=== PATIENT | male | born 1965 | race Caucasian/White ===

== ENCOUNTER → 2020-06-19 | Outpatient (CLI) | payer MEDICARE, OTHER | LOC: WCC 11:00 | DX: L89.113 Pressure ulcer of right upper back, stage 3 (principal); L89.893 Pressure ulcer of other site, stage 3; L89.309 Pressure ulcer of unspecified buttock, unspecified stage; M62.3 Immobility syndrome (paraplegic); M19.90 Unspecified osteoarthritis, unspecified site; H40.9 Unspecified glaucoma; B96.4 Proteus (mirabilis) (morganii) as the cause of diseases classified elsewhere; Z87.828 Personal history of other (healed) physical injury and trauma; Z74.1 Need for assistance with personal care; Z88.0 Allergy status to penicillin ==

== ENCOUNTER → 2020-07-03 | Outpatient (CLI) | payer MEDICARE, OTHER | LOC: WCC 11:00 | PROC: 0JB70ZZ Excision of Back Subcutaneous Tissue and Fascia, Open Approach (ICD-10-PCS; principal; 2020-07-03) | PROC: 0JBB0ZZ Excision of Perineum Subcutaneous Tissue and Fascia, Open Approach (ICD-10-PCS; 2020-07-03) | DX: L89.893 Pressure ulcer of other site, stage 3 (principal); L89.113 Pressure ulcer of right upper back, stage 3; M62.3 Immobility syndrome (paraplegic); B96.4 Proteus (mirabilis) (morganii) as the cause of diseases classified elsewhere; Z74.1 Need for assistance with personal care; Z88.0 Allergy status to penicillin; Z79.899 Other long term (current) drug therapy ==

== ENCOUNTER → 2020-07-24 | Outpatient (CLI) | payer MEDICARE, OTHER | LOC: WCC 11:00 | PROC: 0KBM0ZZ Excision of Perineum Muscle, Open Approach (ICD-10-PCS; principal; 2020-07-24) | PROC: 0KBF0ZZ Excision of Right Trunk Muscle, Open Approach (ICD-10-PCS; 2020-07-24) | DX: L89.893 Pressure ulcer of other site, stage 3 (principal); L89.113 Pressure ulcer of right upper back, stage 3; M62.3 Immobility syndrome (paraplegic); B96.4 Proteus (mirabilis) (morganii) as the cause of diseases classified elsewhere; Z74.1 Need for assistance with personal care; Z88.0 Allergy status to penicillin; Z79.899 Other long term (current) drug therapy ==

== ENCOUNTER → 2020-08-14 | Outpatient (CLI) | payer MEDICARE, OTHER | LOC: WCC 11:00 | DX: L89.893 Pressure ulcer of other site, stage 3 (principal); L89.113 Pressure ulcer of right upper back, stage 3; B96.4 Proteus (mirabilis) (morganii) as the cause of diseases classified elsewhere; M62.3 Immobility syndrome (paraplegic); H40.9 Unspecified glaucoma; M19.90 Unspecified osteoarthritis, unspecified site; Z88.0 Allergy status to penicillin ==

== ENCOUNTER → 2020-08-28 | Outpatient (CLI) | payer MEDICARE, OTHER | LOC: WCC 11:00 | DX: L89.113 Pressure ulcer of right upper back, stage 3 (principal); L89.893 Pressure ulcer of other site, stage 3; B96.4 Proteus (mirabilis) (morganii) as the cause of diseases classified elsewhere; M62.3 Immobility syndrome (paraplegic); Z74.1 Need for assistance with personal care; Z88.0 Allergy status to penicillin; Z79.2 Long term (current) use of antibiotics; Z79.899 Other long term (current) drug therapy | CPT/HCPCS: 87070; 87077; 87186; 87205 ==

== ENCOUNTER → 2020-09-12 | Outpatient (CLI) | payer MEDICARE, OTHER | LOC: WCC 11:00 | PROC: 0KBM0ZZ Excision of Perineum Muscle, Open Approach (ICD-10-PCS; principal; 2020-09-12) | PROC: 0KBF0ZZ Excision of Right Trunk Muscle, Open Approach (ICD-10-PCS; 2020-09-12) | DX: I96 Gangrene, not elsewhere classified (principal); L89.893 Pressure ulcer of other site, stage 3; L89.113 Pressure ulcer of right upper back, stage 3; M62.3 Immobility syndrome (paraplegic); B96.29 Other Escherichia coli [E. coli] as the cause of diseases classified elsewhere; M19.90 Unspecified osteoarthritis, unspecified site; Z79.2 Long term (current) use of antibiotics; Z79.891 Long term (current) use of opiate analgesic; Z79.1 Long term (current) use of non-steroidal anti-inflammatories (NSAID); Z79.899 Other long term (current) drug therapy; Z74.1 Need for assistance with personal care; Z88.0 Allergy status to penicillin ==

== ENCOUNTER → 2020-09-26 | Outpatient (CLI) | payer MEDICARE, OTHER | LOC: WCC 11:00 | DX: L89.113 Pressure ulcer of right upper back, stage 3 (principal); L89.893 Pressure ulcer of other site, stage 3; M62.3 Immobility syndrome (paraplegic); B96.29 Other Escherichia coli [E. coli] as the cause of diseases classified elsewhere; Z74.1 Need for assistance with personal care; Z88.0 Allergy status to penicillin; Z79.2 Long term (current) use of antibiotics; Z79.899 Other long term (current) drug therapy ==

== ENCOUNTER → 2020-10-11 | Outpatient (CLI) | payer MEDICARE, OTHER | LOC: WCC 10:55 | PROC: 0JBB0ZZ Excision of Perineum Subcutaneous Tissue and Fascia, Open Approach (ICD-10-PCS; principal; 2020-10-11) | PROC: 0JB70ZZ Excision of Back Subcutaneous Tissue and Fascia, Open Approach (ICD-10-PCS; 2020-10-11) | DX: I96 Gangrene, not elsewhere classified (principal); L89.113 Pressure ulcer of right upper back, stage 3; L89.893 Pressure ulcer of other site, stage 3; Z79.891 Long term (current) use of opiate analgesic; Z79.899 Other long term (current) drug therapy ==

== ENCOUNTER → 2020-10-25 | Outpatient (CLI) | payer MEDICARE, OTHER | LOC: WCC 11:00 | DX: L89.113 Pressure ulcer of right upper back, stage 3 (principal); L89.893 Pressure ulcer of other site, stage 3; M62.3 Immobility syndrome (paraplegic); B96.29 Other Escherichia coli [E. coli] as the cause of diseases classified elsewhere; Z74.1 Need for assistance with personal care; Z88.0 Allergy status to penicillin; Z79.891 Long term (current) use of opiate analgesic; Z79.899 Other long term (current) drug therapy ==

== ENCOUNTER → 2020-11-08 | Outpatient (CLI) | payer MEDICARE, OTHER | LOC: WCC 11:00 | DX: L89.113 Pressure ulcer of right upper back, stage 3 (principal); L89.893 Pressure ulcer of other site, stage 3; M62.3 Immobility syndrome (paraplegic); B96.29 Other Escherichia coli [E. coli] as the cause of diseases classified elsewhere; Z74.1 Need for assistance with personal care; Z88.0 Allergy status to penicillin; Z79.891 Long term (current) use of opiate analgesic; Z79.899 Other long term (current) drug therapy ==

== ENCOUNTER → 2020-11-22 | Outpatient (CLI) | payer MEDICARE, OTHER | LOC: WCC 11:00 | DX: L89.113 Pressure ulcer of right upper back, stage 3 (principal); L89.893 Pressure ulcer of other site, stage 3; M62.3 Immobility syndrome (paraplegic); B96.29 Other Escherichia coli [E. coli] as the cause of diseases classified elsewhere; Z74.1 Need for assistance with personal care; Z88.0 Allergy status to penicillin; Z79.891 Long term (current) use of opiate analgesic; Z79.899 Other long term (current) drug therapy ==

== ENCOUNTER → 2020-12-06 | Outpatient (CLI) | payer MEDICARE, OTHER | LOC: WCC 11:00 | DX: L89.113 Pressure ulcer of right upper back, stage 3 (principal); L89.893 Pressure ulcer of other site, stage 3; B96.29 Other Escherichia coli [E. coli] as the cause of diseases classified elsewhere; M62.3 Immobility syndrome (paraplegic); Z79.899 Other long term (current) drug therapy; Z99.3 Dependence on wheelchair; Z74.1 Need for assistance with personal care ==

== ENCOUNTER → 2020-12-25 | Outpatient (CLI) | payer MEDICARE, OTHER | LOC: WCC 11:00 | DX: L89.113 Pressure ulcer of right upper back, stage 3 (principal); L89.893 Pressure ulcer of other site, stage 3; M62.3 Immobility syndrome (paraplegic); E44.0 Moderate protein-calorie malnutrition; B96.29 Other Escherichia coli [E. coli] as the cause of diseases classified elsewhere; Z74.1 Need for assistance with personal care; Z88.0 Allergy status to penicillin; Z79.891 Long term (current) use of opiate analgesic; Z79.899 Other long term (current) drug therapy ==

== ENCOUNTER → 2021-01-10 | Outpatient (CLI) | payer MEDICARE, OTHER | LOC: WCC 09:22 | DX: L89.893 Pressure ulcer of other site, stage 3 (principal); L89.113 Pressure ulcer of right upper back, stage 3; G82.20 Paraplegia, unspecified; M62.3 Immobility syndrome (paraplegic); Z74.1 Need for assistance with personal care; B96.29 Other Escherichia coli [E. coli] as the cause of diseases classified elsewhere; E44.0 Moderate protein-calorie malnutrition; Z88.0 Allergy status to penicillin | CPT/HCPCS: 87070; 87205 ==

== ENCOUNTER → 2021-01-31 | Outpatient (CLI) | payer MEDICARE, OTHER | LOC: WCC 11:00 | DX: L89.113 Pressure ulcer of right upper back, stage 3 (principal); L89.893 Pressure ulcer of other site, stage 3; G82.20 Paraplegia, unspecified; Z74.1 Need for assistance with personal care; B96.29 Other Escherichia coli [E. coli] as the cause of diseases classified elsewhere; E44.0 Moderate protein-calorie malnutrition ==

== ENCOUNTER → 2021-02-21 | Outpatient (CLI) | payer MEDICARE, OTHER | LOC: WCC 11:00 | DX: L89.113 Pressure ulcer of right upper back, stage 3 (principal); L89.893 Pressure ulcer of other site, stage 3; E44.0 Moderate protein-calorie malnutrition; M62.3 Immobility syndrome (paraplegic); B96.29 Other Escherichia coli [E. coli] as the cause of diseases classified elsewhere; Z74.1 Need for assistance with personal care; Z88.0 Allergy status to penicillin; Z79.899 Other long term (current) drug therapy ==

== ENCOUNTER → 2021-03-20 | Outpatient (CLI) | payer MEDICARE, OTHER | LOC: WCC 08:56 | DX: L89.893 Pressure ulcer of other site, stage 3 (principal); L89.113 Pressure ulcer of right upper back, stage 3; M62.3 Immobility syndrome (paraplegic); Z74.1 Need for assistance with personal care; B96.29 Other Escherichia coli [E. coli] as the cause of diseases classified elsewhere; E44.0 Moderate protein-calorie malnutrition; Z88.0 Allergy status to penicillin; L89.309 Pressure ulcer of unspecified buttock, unspecified stage ==

== ENCOUNTER → 2021-04-11 | Outpatient (CLI) | payer MEDICARE, OTHER | END | disposition home or self-care (01) | LOC: WCC 08:06 | PROC: 0JB70ZZ Excision of Back Subcutaneous Tissue and Fascia, Open Approach (ICD-10-PCS; principal; 2021-04-11) | PROC: 0WBM0ZZ Excision of Male Perineum, Open Approach (ICD-10-PCS; 2021-04-11) | DX: L89.113 Pressure ulcer of right upper back, stage 3 (principal); L89.893 Pressure ulcer of other site, stage 3; M62.3 Immobility syndrome (paraplegic); B96.29 Other Escherichia coli [E. coli] as the cause of diseases classified elsewhere; M19.90 Unspecified osteoarthritis, unspecified site; H40.9 Unspecified glaucoma; E44.0 Moderate protein-calorie malnutrition; Z68.23 Body mass index [BMI] 23.0-23.9, adult; Z79.891 Long term (current) use of opiate analgesic; Z79.1 Long term (current) use of non-steroidal anti-inflammatories (NSAID); Z79.899 Other long term (current) drug therapy; Z88.0 Allergy status to penicillin ==

== ENCOUNTER → 2021-04-25 | Outpatient (CLI) | payer MEDICARE, OTHER | END | disposition home or self-care (01) | LOC: WCC 08:03 | PROC: 0JB70ZZ Excision of Back Subcutaneous Tissue and Fascia, Open Approach (ICD-10-PCS; principal; 2021-04-25) | PROC: 0JBB0ZZ Excision of Perineum Subcutaneous Tissue and Fascia, Open Approach (ICD-10-PCS; 2021-04-25) | DX: L89.113 Pressure ulcer of right upper back, stage 3 (principal); L89.893 Pressure ulcer of other site, stage 3; B96.29 Other Escherichia coli [E. coli] as the cause of diseases classified elsewhere; H40.9 Unspecified glaucoma; M19.90 Unspecified osteoarthritis, unspecified site; G82.20 Paraplegia, unspecified; E44.0 Moderate protein-calorie malnutrition; Z68.23 Body mass index [BMI] 23.0-23.9, adult; Z74.1 Need for assistance with personal care; Z79.891 Long term (current) use of opiate analgesic; Z79.1 Long term (current) use of non-steroidal anti-inflammatories (NSAID); Z79.899 Other long term (current) drug therapy; Z88.0 Allergy status to penicillin ==

== ENCOUNTER → 2021-05-14 | Outpatient (CLI) | payer MEDICARE, OTHER | LOC: WCC 08:02 | DX: L89.113 Pressure ulcer of right upper back, stage 3 (principal); L89.893 Pressure ulcer of other site, stage 3; M62.3 Immobility syndrome (paraplegic); Z74.1 Need for assistance with personal care; B96.29 Other Escherichia coli [E. coli] as the cause of diseases classified elsewhere; E44.0 Moderate protein-calorie malnutrition; Z88.0 Allergy status to penicillin; Z79.899 Other long term (current) drug therapy | CPT/HCPCS: 87070; 87205 ==

== ENCOUNTER → 2021-05-28 | Outpatient (CLI) | payer MEDICARE, OTHER | LOC: WCC 07:42 | DX: L89.113 Pressure ulcer of right upper back, stage 3 (principal); L89.893 Pressure ulcer of other site, stage 3; M62.3 Immobility syndrome (paraplegic); Z74.1 Need for assistance with personal care; B96.29 Other Escherichia coli [E. coli] as the cause of diseases classified elsewhere; E44.0 Moderate protein-calorie malnutrition; Z88.0 Allergy status to penicillin ==

== ENCOUNTER → 2021-06-18 | Outpatient (CLI) | payer MEDICARE, OTHER | LOC: WCC 08:25 | DX: L89.893 Pressure ulcer of other site, stage 3 (principal); L89.113 Pressure ulcer of right upper back, stage 3; M62.3 Immobility syndrome (paraplegic); Z74.1 Need for assistance with personal care; E44.0 Moderate protein-calorie malnutrition; B96.29 Other Escherichia coli [E. coli] as the cause of diseases classified elsewhere; Z88.0 Allergy status to penicillin; Z68.23 Body mass index [BMI] 23.0-23.9, adult ==

== ENCOUNTER → 2021-08-01 | Outpatient (CLI) | payer MEDICARE, OTHER | LOC: WCC 07:20 | DX: L89.893 Pressure ulcer of other site, stage 3 (principal); L89.113 Pressure ulcer of right upper back, stage 3; B96.29 Other Escherichia coli [E. coli] as the cause of diseases classified elsewhere; E44.0 Moderate protein-calorie malnutrition; M62.3 Immobility syndrome (paraplegic); Z74.1 Need for assistance with personal care; Z68.23 Body mass index [BMI] 23.0-23.9, adult; Z88.0 Allergy status to penicillin ==

== ENCOUNTER → 2021-08-26 | Outpatient (CLI) | payer MEDICARE, OTHER | END | disposition home or self-care (01) | LOC: WCC 07:43 | PROC: 0JB70ZZ Excision of Back Subcutaneous Tissue and Fascia, Open Approach (ICD-10-PCS; principal; 2021-08-26) | PROC: 0JBB0ZZ Excision of Perineum Subcutaneous Tissue and Fascia, Open Approach (ICD-10-PCS; 2021-08-26) | DX: L89.113 Pressure ulcer of right upper back, stage 3 (principal); L89.893 Pressure ulcer of other site, stage 3; M62.3 Immobility syndrome (paraplegic); H40.9 Unspecified glaucoma; M19.90 Unspecified osteoarthritis, unspecified site; E44.0 Moderate protein-calorie malnutrition; Z68.23 Body mass index [BMI] 23.0-23.9, adult; Z79.899 Other long term (current) drug therapy; Z88.0 Allergy status to penicillin ==

== ENCOUNTER → 2021-09-16 | Outpatient (CLI) | payer MEDICARE, OTHER | LOC: WCC 08:04 | DX: L89.893 Pressure ulcer of other site, stage 3 (principal); L89.113 Pressure ulcer of right upper back, stage 3; E44.0 Moderate protein-calorie malnutrition; M62.3 Immobility syndrome (paraplegic); Z74.1 Need for assistance with personal care; Z68.23 Body mass index [BMI] 23.0-23.9, adult; Z88.0 Allergy status to penicillin ==

== ENCOUNTER → 2021-10-10 | Outpatient (CLI) | payer MEDICARE, OTHER | END | disposition home or self-care (01) | LOC: WCC 07:54 | DX: L89.893 Pressure ulcer of other site, stage 3 (principal); L89.113 Pressure ulcer of right upper back, stage 3; M62.3 Immobility syndrome (paraplegic); E44.0 Moderate protein-calorie malnutrition; Z74.1 Need for assistance with personal care; Z79.899 Other long term (current) drug therapy ==

== ENCOUNTER → 2021-11-04 | Outpatient (CLI) | payer MEDICARE, OTHER | LOC: WCC 07:48 | DX: L89.113 Pressure ulcer of right upper back, stage 3 (principal); L89.893 Pressure ulcer of other site, stage 3; M62.3 Immobility syndrome (paraplegic); E44.0 Moderate protein-calorie malnutrition; Z74.1 Need for assistance with personal care; Z88.0 Allergy status to penicillin; Z79.899 Other long term (current) drug therapy ==

== ENCOUNTER → 2021-12-02 | Outpatient (CLI) | payer MEDICARE, OTHER | LOC: WCC 07:56 | DX: L89.113 Pressure ulcer of right upper back, stage 3 (principal); L89.893 Pressure ulcer of other site, stage 3; M62.3 Immobility syndrome (paraplegic); E44.0 Moderate protein-calorie malnutrition; Z74.1 Need for assistance with personal care; Z88.0 Allergy status to penicillin ==

== ENCOUNTER → 2021-12-24 | Outpatient (CLI) | payer MEDICARE, OTHER | END | disposition home or self-care (01) | LOC: WCC 07:32 | DX: L89.113 Pressure ulcer of right upper back, stage 3 (principal); L89.893 Pressure ulcer of other site, stage 3; E44.0 Moderate protein-calorie malnutrition; M62.3 Immobility syndrome (paraplegic); Z74.1 Need for assistance with personal care; Z79.899 Other long term (current) drug therapy ==

== ENCOUNTER → 2022-01-13 | Outpatient (CLI) | payer MEDICARE, OTHER | LOC: WCC 07:23 | DX: L89.113 Pressure ulcer of right upper back, stage 3 (principal); L89.893 Pressure ulcer of other site, stage 3; M62.3 Immobility syndrome (paraplegic); E44.0 Moderate protein-calorie malnutrition; Z74.1 Need for assistance with personal care; Z88.0 Allergy status to penicillin; Z79.899 Other long term (current) drug therapy ==

== ENCOUNTER → 2022-02-04 | Outpatient (CLI) | payer MEDICARE, OTHER | LOC: WCC 07:20 | DX: L89.113 Pressure ulcer of right upper back, stage 3 (principal); L89.893 Pressure ulcer of other site, stage 3; M62.3 Immobility syndrome (paraplegic); E44.0 Moderate protein-calorie malnutrition; Z74.1 Need for assistance with personal care; Z88.0 Allergy status to penicillin; Z79.899 Other long term (current) drug therapy ==

== ENCOUNTER → 2022-03-03 | Outpatient (CLI) | payer MEDICARE, OTHER | LOC: WCC 07:35 | DX: L89.113 Pressure ulcer of right upper back, stage 3 (principal); L89.893 Pressure ulcer of other site, stage 3; M62.3 Immobility syndrome (paraplegic); E44.0 Moderate protein-calorie malnutrition; M54.6 Pain in thoracic spine; Z74.1 Need for assistance with personal care; Z79.891 Long term (current) use of opiate analgesic; Z79.899 Other long term (current) drug therapy ==

== ENCOUNTER → 2022-03-03 | Outpatient (CLI) | payer MEDICARE, OTHER | LOC: RAD 12:16 | DX: L89.113 Pressure ulcer of right upper back, stage 3 (principal) | CPT/HCPCS: 71046 ==